=== PATIENT | female | born 1985 | race Caucasian/White ===

== ENCOUNTER 2022-05-18 15:05 | Inpatient (IN) | payer MEDICAID ==
[~2022-05-18] VITALS: Ht 157.5 cm; Wt 100.2 kg
[~2022-05-18 15:05] MED LIST: ASPIRIN CHEWABL81 MG PO; FERREX 150150 MG PO; MACROBID 100 M100 MG PO; ZANTAC150 MG PO
[2022-05-18 18:12] LABS: HEMOGLOBIN 10.2 gm/dl (12.3-15.3); RED BLOOD COUNT 3.47 M/UL (4.00-5.10); WHITE BLOOD COUNT 4.7 K/UL (4.5-11.0)
[2022-05-19 06:03] LABS: HEMOGLOBIN 9.5 gm/dl (12.3-15.3); RED BLOOD COUNT 3.26 M/UL (4.00-5.10); WHITE BLOOD COUNT 3.6 K/UL (4.5-11.0)
[2022-05-20 06:24] LABS: HEMOGLOBIN 9.4 gm/dl (12.3-15.3); RED BLOOD COUNT 3.2 M/UL (4.00-5.10); WHITE BLOOD COUNT 3.4 K/UL (4.5-11.0)
[2022-05-21 05:03] LABS: HEMOGLOBIN 9.4 gm/dl (12.3-15.3); RED BLOOD COUNT 3.18 M/UL (4.00-5.10); WHITE BLOOD COUNT 3.5 K/UL (4.5-11.0)
[2022-05-21] MEDS ORDERED: CATAPRES 0.1MG0.1 MG PO (10:29)
[2022-05-21] MEDS ORDERED: CARVEDILOL12.5 MG PO (10:29)
[2022-05-21 11:15] LABS: COMPLEMENT C3, SERUM 99 mg/dL (82-167); COMPLEMENT C4, SERUM 18 mg/dL (12-38)
[2022-05-21 12:15] LABS: ANTI-DSDNA ANTIBODIES 1 IU/mL (0-9)
[2022-05-21 13:10] LABS: HBSAG SCREEN Negative (Negative); HCV AB <0.1 (0.0-0.9); HEP A AB, IGM Negative (Negative); HEP B CORE AB, IGM Negative (Negative)
[2022-05-21 14:10] LABS: A/G RATIO 1.6 (0.7-1.7); ALBUMIN 3.2 g/dL (2.9-4.4); ALPHA-1-GLOBULIN 0.2 g/dL (0.0-0.4); ALPHA-2-GLOBULIN 0.6 g/dL (0.4-1.0); BETA GLOBULIN 0.7 g/dL (0.7-1.3); GAMMA GLOBULIN 0.7 g/dL (0.4-1.8); GLOBULIN, TOTAL 2.1 g/dL (2.2-3.9); IMMUNOGLOBULIN A, QN, SERUM 323 mg/dL (87-352); IMMUNOGLOBULIN G, QN, SERUM 737 mg/dL (586-1602); IMMUNOGLOBULIN M, QN, SERUM 35 mg/dL (26-217); M-SPIKE Not Observed g/dL (Not Observed); PROTEIN, TOTAL, SERUM 5.3 g/dL (6.0-8.5)
[2022-05-21 19:11] LABS: ANTIMYELOPEROXIDASE (MPO) ABS <0.2 units (0.0-0.9); ANTIPROTEINASE 3 (PR-3) ABS <0.2 units (0.0-0.9); ATYPICAL PANCA <1:20 titer (Neg:<1:20); CYTOPLASMIC (C-ANCA) <1:20 titer (Neg:<1:20); PERINUCLEAR (P-ANCA) <1:20 titer (Neg:<1:20)
== END 2022-05-21 11:44 | disposition home or self-care (01) | DRG 683 ==
LOC: ER1 15:05 → M/S 20:28 → CDU 20:28 → M/S 22:05
PROVIDERS: Internal Medicine; Internal Medicine Nephrology; Physician Assistant Medical; ADMIT Family Medicine
DX: N17.9 Acute kidney failure, unspecified (principal); E87.1 Hypo-osmolality and hyponatremia; Q61.3 Polycystic kidney, unspecified; Z68.41 Body mass index [BMI] 40.0-44.9, adult; R80.9 Proteinuria, unspecified; D63.1 Anemia in chronic kidney disease; E86.0 Dehydration; E66.9 Obesity, unspecified; N18.4 Chronic kidney disease, stage 4 (severe); I12.9 Hypertensive chronic kidney disease with stage 1 through stage 4 chronic kidney disease, or unspecified chronic kidney disease; Z90.49 Acquired absence of other specified parts of digestive tract; Z98.890 Other specified postprocedural states; Z87.891 Personal history of nicotine dependence
CPT/HCPCS: 36415; 71045; 80053; 80074; 81001; 82043; 82550; 82553; 82570; 82607; 82728; 82784; 83036; 83520; 83540; 83550; 83605; 83690; 83735; 83880; 84100; 84155; 84156; 84165; 84439; 84443; 84484; 84550; 84703; 85025; 86038; 86140; 86160; 86225; 86256; 86334; 93005; 96365; 96372; 96374; 96375; 96376; 99285; C9113; G0378; J1644; J2405; J3475; J3480; P9047; U0002